=== PATIENT | female | born 1935 | race Caucasian/White ===

== ENCOUNTER 2019-09-10 17:13 | Emergency (ER) | payer MEDICARE ==
--- NOTE | 2019-09-10 18:05 | Emergency Department Record ---
History of Present Illness - General Chief Complaint: Abdominal Pain Stated Complaint: ABD PAIN Time Seen by Provider: 09/10/19 18:01 Source: Patient Mode of Arrival: Ambulatory Limitations: No limitations - History of Present Illness Initial Comments: 84 yo female presents to ED for evaluation of LLQ abdominal pain symptoms that began several days ago. Patient was recently diagnosed with shingles, has been taking acyclovir for the past 2.5 weeks, denies fevers, chills, or recent illness. Patient reports that her PCP was concerned about possible d iverticulitis, was se3nt to the ED for evaluation. Patient denies change in stools, bloody stools, urinary symptoms, or history of diverticulitis. MD Complaint: Abdominal pain Onset/Timin -: Days(s) Location: LLQ Radiation: LUQ, LLQ Severity: Moderate Quality: Burning, Other Consistency: Constant Improves With: Medication (For shingles) Worsens With: Nothing Associated Symptoms: Denies other symptoms - Related Data Home Medications Medication Instructions Recorded Confirmed Last Taken Anastrozole 1 tab PO DAILY 09/10/19 09/10/19 Unknown Aspirin [Aspir-Low] 1 tab PO DAILY 09/10/19 09/10/19 Unknown Carvedilol [Coreg] 1 tab PO BID 09/10/19 09/10/19 Unknown Cholecalciferol (Vitamin D3) 1 tab PO DAILY 09/10/19 09/10/19 Unknown [Vitamin D3] Cyanocobalamin/Folic AC/Vit B6 [B 1 tab PO DAILY 09/10/19 09/10/19 Unknown Complex-Folic Acid Tablet] Hydrochlorothiazide [Hctz] 1 tab PO DAILY 09/10/19 09/10/19 Unknown Lutein 1 tab PO DAILY 09/10/19 09/10/19 Unknown [place]-3 Fatty Acids/Fish Oil [Fish 1 tab PO DAILY 09/10/19 09/10/19 Unknown Oil 1,000 mg Capsule] Potassium Chloride 1 tab PO DAILY 09/10/19 09/10/19 Unknown Selenium 1 tab PO DAILY 09/10/19 09/10/19 Unknown Sennosides/Docusate Sodium 1 tab PO DAILY 09/10/19 09/10/19 Unknown [Docusate Sodium-Senna Tablet] Thyroid,Pork [Grady Thyroid] 1 tab PO DAILY 09/10/19 09/10/19 Unknown Allergies Allergy/AdvReac Type Severity Reaction Status Date / Time adhesive tape Allergy RASH Verified 09/10/19 18:06 Sulfa (Sulfonamide Allergy RASH Verified 09/10/19 18:06 Antibiotics) codeine AdvReac HYPERSENSIT Verified 09/10/19 18:06 IVITY Travel Screening - Travel/Exposure Within Last 30 Days Have you traveled within the last 30 days?: No - Travel/Exposure Within Last Year Have you traveled outside the [place] in the last year?: No - Additonal Travel Details Have you been exposed to anyone with a communicable illness?: No Review of Systems Constitutional: Denies: Chills, Fever, Malaise, Night sweats Eyes: Denies: Eye discharge, Eye pain ENT: Denies: Congestion, Ear pain, Epistaxis Respiratory: Denies: Cough, Dyspnea Cardiovascular: Denies: Chest pain, Dyspnea on exertion Endocrine: Denies: Fatigue, Heat or cold intolerance Gastrointestinal: Reports: Abdominal pain. Denies: Nausea, Vomiting Genitourinary: Denies: Discharge, Incontinence, Retention Musculoskeletal: Denies: Arthralgia, Back pain Skin: Denies: Bruising, Change in color Neurological: Denies: Abnormal gait, Confusion, Headache, Tingling, Tremors Psychiatric: Denies: Anxiety Hematological/Lymphatic: Denies: Anemia, Blood Clots Past Medical History - SOCIAL HISTORY Smoking Status: Never smoker Alcohol Use: None Drug Use: None - RESPIRATORY Hx Respiratory Disorders: No - CARDIOVASCULAR Hx Cardio Disorders: Yes Hx Hypertension: Yes - NEURO Hx Neuro Disorders: No - GI Hx GI Disorders: No - Hx Genitourinary Disorders: Yes Hx Bladder Problem: Yes (incomtinence) - ENDOCRINE Hx Endocrine Disorders: Yes Hx Diabetes: No Hx Thyroid Disease: Yes - MUSCULOSKELETAL Hx Musculoskeletal Disorders: No - PSYCH Hx Psych Problems: No - HEMATOLOGY/ONCOLOGY Hx Hematology/Oncology Disorders: Yes Hx Cancer: Yes (breast bilateral) Hx Chemotherapy: No Hx Radiation Therapy: Yes Family Medical History Any Significant Family History?: No Physical Exam - General General Appearance: Alert, Oriented x3, Cooperative, Mild distress Limitations: No limitations - Head Head exam: Atraumatic, Normocephalic, Normal inspection Head exam detail: negative: Abrasion, Contusion, Dalton's sign, General tenderness, Hematoma, Laceration - Eye Eye exam: Normal appearance. negative: Conjunctival injection, Periorbital swelling, Periorbital tenderness, Scleral icterus - ENT Ear exam: negative: Auricular hematoma, Auricular trauma Nasal Exam: negative: Active bleeding, Discharge, Dried blood, Foreign body Mouth exam: negative: Drooling, Laceration, Muffled voice, Tongue elevation - Neck Neck exam: Normal inspection. negative: Meningismus, Tenderness - Respiratory Respiratory exam: Normal lung sounds bilaterally. negative: Respiratory d istress, Rhonchi, Stridor, Wheezes - Cardiovascular Cardiovascular Exam: Regular rate, Normal rhythm, Normal heart sounds - GI/Abdominal GI/Abdominal exam: Soft. negative: Distended, Pulsatile mass, Rebound, Rigid, Tenderness - Rectal Rectal exam: Deferred - exam: Deferred - Extremities Extremities exam: Normal inspection. negative: Calf tenderness, Pedal edema, Tenderness - Back Back exam: Denies: CVA tenderness (R), CVA tenderness (L) - Neurological Neurological exam: Alert, Normal gait, Oriented X3 - Psychiatric Psychiatric exam: Normal affect, Normal mood - Skin Skin exam: Normal color. negative: Abrasion Type of lesion: negative: abrasion Course Vital Signs 09/10/19 17:44 Temperature 98.0 F Pulse Rate 80 Respiratory 16 Rate Blood Pressure 138/85 Pulse Ox 94 L - Reevaluation(s) Reevaluation #1: 09/10/19 19:39 Laboratory studies were reviewed and appear grossly unremarkable for an acute process. Reevaluation #2: 09/10/19 20:33 CT Abdomen/Pelvis: 1. No acute abnormality 2 cm hepatic cyst 3.Scarring left kidney 4. Cholecystectomy 5. Diverticulosis coli 6. Aortobi-iliac stent graft, no anuerysm 7. Hysterectomy 8. Umbilical/periumbilical hernias Patient and her family members were updated on all results, no acute abnormality of the abdomen or pelvis. Patient's symptoms are likely the result of her shingles. Patient appears stable for discharge at this time. Copy of all results and CT were given to the patient to take to her PCP for follow-up. Medical Decision Making - Lab Data Result diagrams: 09/10/19 18:46 09/10/19 18:46 Disposition Disposition: Discharge Clinical Impression: Shingles Qualifiers: Herpes zoster complications: without complications Qualified Code(s): B02.9 - Zoster without complications Disposition: Home, Self-Care Condition: (2) Stable Instructions: Shingles (ED) Additional Instructions: Return to ED if your symptoms worsen or if you have any concerns. Follow-up with Dr. Ybarra in 3-5 days as directed. Forms: Patient Portal Access Time of Disposition: 20:36 Quality - Quality Measures Quality Measures: N/A - Blood Pressure Screening Does Patient Have Any of the Following: Active Dx of HTN Blood Pressure Classification: Pre-Hypertensive BP Reading Systolic Measurement: 138 Diastolic Measurement: 85 Screening for High Blood Pressure: Patient Exclusion, Hx of HTN [[id number]]
[2019-09-10 18:56] LABS: ABSOLUTE NEUTROPHIL COUNT 3.73; BASO % 0.3 % (0-6); EOS % 2.2 % (0-6); GRAN % 55.6 % (47-80); HEMATOCRIT 44.7 % (35.0-47.0); HEMOGLOBIN 14.4 gm/dl (11.6-16.0); LYMPH % 28.9 % (16-45); MEAN CELL VOLUME 92.9 fl (81-97); MEAN CORPUSCULAR HEMOGLOBIN 29.9 pg (27-33); MEAN CORPUSCULAR HGB CONC 32.2 g/dl (32-36); MEAN PLATELET VOLUME 9.1 fl (7.4-10.4); PLATELET COUNT 206 K/uL (130-400); RED BLOOD COUNT 4.81 M/uL (3.80-5.40); RED CELL DISTRIBUTION WIDTH 15.4 % (11.5-14.5); WHITE BLOOD COUNT W/O DIFF 6.7 K/uL (4.2-12.2)
[2019-09-10 19:07] LABS: BLOOD UREA NITROGEN 19 mg/dL (8-23); CREATININE 0.9 mg/dL (0.5-0.9); EST GLOMERULAR FILTRATION RATE > 60 mL/min
[2019-09-10 19:08] LABS: LIPASE 33 U/L (13-60); TOTAL PROTEIN 6.6 g/dL (6.6-8.7)
[2019-09-10 19:10] LABS: GLUCOSE,RANDOM 98 mg/dL (74-109)
[2019-09-10 19:12] LABS: ALT/SGPT 25 U/L (<33)
[2019-09-10 19:13] LABS: ALB/GLOB RATIO 1.1 (1.1-1.8); ALBUMIN 3.4 g/dL (4.0-5.0); ALKALINE PHOSPHATASE 62 U/L (35-104); AST/SGOT 21 U/L (10.0-35.0)
[2019-09-10 20:05] LABS: URINE APPEARANCE CLEAR; URINE BILIRUBIN NEGATIVE (NEGATIVE); URINE BLOOD NEGATIVE (NEGATIVE); URINE COLOR YELLOW; URINE GLUCOSE (UA) NEGATIVE (NEGATIVE); URINE KETONE NEGATIVE (NEGATIVE); URINE LEUKOCYTE ESTERASE TRACE (NEGATIVE); URINE NITRITE NEGATIVE (NEGATIVE); URINE PROTEIN NEGATIVE (NEGATIVE); URINE UROBILINOGEN 0.2 E.U./dL (0.20 - 1.00)
[2019-09-10 20:16] LABS: URINE RBC 0 - 2 (NONE SEEN); URINE TRANSITIONAL EPI CELLS 0 - 2 /hpf
[2019-09-10 20:17] LABS: URINE BACTERIA NONE SEEN
--- NOTE | 2019-09-10 20:27 | CT SCAN REPORT ---
EXAMINATION: CT Abdomen and Pelvis with IV Contrast EXAM DATE: 09/10/2019 8:05 PM TECHNIQUE: CT imaging of the abdomen and pelvis was performed with intravenous contrast. Coronal and sagittal images were reconstructed. IV Contrast: The amount and type of contrast are recorded in the medical record. INDICATION: LLQ abdominal pain COMPARISON: None ENCOUNTER: Not applicable CT ABDOMEN AND PELVIS FINDINGS: Lung Bases: Bibasilar discoid atelectasis or scarring Hepatobiliary: The liver has a normal size with a smooth surface. The hepatic and portal veins appear patent. 2.2 cm cyst inferior right lobe of the liver. Smaller subcentimeter hypodensities too small to characterize likely. Cholecystectomy. Pancreas: The pancreas is normal. Spleen: The spleen is not enlarged. Adrenals: The adrenal glands are normal. Gastrointestinal: The stomach and small bowel are normal with no obstruction or inflammation. Normal appendix. Diverticulosis coli. No diverticulitis Reproductive Organs: The uterus is absent. Lymphatic System: There is no adenopathy within the abdomen or pelvis. Vasculature: Aortobiiliac stent graft. No aneurysm Peritoneum: No free fluid, free air, or inflammation IMPRESSION: 1. No acute abnormality 2. Bibasilar discoid atelectasis or scarring 3. 2 cm hepatic cyst. Subcentimeter hypodensities in the liver too small to characterize 4. Scarring left kidney. 1.2 cm left renal cyst 5. Cholecystectomy 6. Diverticulosis coli. 7. Aortobiiliac stent graft no aneurysm 8. Hysterectomy 9. Umbilical and periumbilical ventral hernias Dictated by: Marek Castillo MD on 09/10/2019 8:15 PM. .
== END 2019-09-10 20:49 | disposition home or self-care (01) ==
LOC: ER 17:13
DX: B02.9 Zoster without complications (principal); I10 Essential (primary) hypertension; R10.32 Left lower quadrant pain
CPT/HCPCS: 99284 ×2; 83690; 85025; 80053; 81001; 74177; Q9967